=== PATIENT | female | born 1950 | race Caucasian/White ===

== ENCOUNTER 2017-04-11 04:25 | Observation (INO) | payer OTHER ==
[2017-04-11] MEDS ORDERED: TORADOL 30 MG VIAL IVP ONE (04:32)
[2017-04-11] MEDS ORDERED: NITRO-BID OINT 2% Multi-Dose tube TD ONE (04:34)
[2017-04-11] MEDS ORDERED: NITRO-BID OINT 2% Multi-Dose tube ONE (04:35)
[2017-04-11] MEDS ORDERED: TORADOL 15 MG VIAL ONE (04:36)
[2017-04-11 04:42] VITALS: BMI 37.4
[2017-04-11 04:57] LABS: BASOPHILS # (AUTO) 0.1 X10^3/uL (0.0-0.1); BASOPHILS % (AUTO) 1.3 % (0.2-1.0); EOSINOPHILS # (AUTO) 0.3 x10^3/uL (0.0-0.2); EOSINOPHILS % (AUTO) 3.3 % (0.9-2.9); HEMATOCRIT 38.3 % (36.0-47.0); HEMOGLOBIN 12.5 g/dL (12.0-16.0); LYMPHOCYTES # (AUTO) 2.8 X10^3/uL (1.3-2.9); LYMPHOCYTES % (AUTO) 29.8 % (21.0-51.0); MEAN CORPUSCULAR HGB CONC 32.6 g/dL (33.0-35.0); MEAN CORPUSCULAR VOLUME 89.1 fL (80.0-100.0); MEAN PLATELET VOLUME 9.2 fL (7.4-11.0); MONOCYTES # (AUTO) 0.7 x10^3/uL (0.3-0.8); MONOCYTES % (AUTO) 7.9 % (0.0-13.0); NEUTROPHILS # (AUTO) 5.4 x10^3/uL (2.2-4.8); NEUTROPHILS % (AUTO) 57.7 % (42.0-75.0); PLATELET COUNT 245 X10^3/uL (150.0-450.0); RED CELL DISTRIBUTION WIDTH 13.9 % (11.6-16.5); WHITE BLOOD COUNT 9.3 X10^3/uL (3.6-10.0)
[2017-04-11] MEDS ORDERED: NS 1000 ML 1,000 ML IV SCH (05:00)
--- NOTE | 2017-04-11 05:03 | RAD ---
HISTORY: 67-year-old female with chest pain. Study: Frontal view of the chest. Comparison: None. Findings: The trachea is midline. The cardiac silhouette is enlarged with prominent perihilar lung markings an d interstitium. The lungs are clear without focal consolidation, effusion or pneumothorax. Soft tiss ues are unremarkable. Osseous structures are unremarkable. IMPRESSION: 1. Cardiomegaly with prominent perihilar lung markings and interstitium consistent with COPD. Reported By:
[2017-04-11 05:11] LABS: BLOOD UREA NITROGEN 23 mg/dL (7-18); CALCIUM 9.1 mg/dL (8.5-10.1); CARBON DIOXIDE 26.7 mmol/L (21-32); CHLORIDE 105 mmol/L (98-107); COR NA(FOR HYPERGLY) 143 mmol/L (136-145); CREATININE 1.25 mg/dL (0.55-1.02); SODIUM 139 mmol/L (136-145); TROPONIN I < 0.02 ng/mL (0-1.5); eGFR BLACK RACES 55 (>60); eGFR NON BLACK RACES 46 (>60)
[2017-04-11 05:16] LABS: ALANINE AMINOTRANSFERASE 14 Units/L (12-78); ALBUMIN 3.3 g/dL (3.4-5.0); ALKALINE PHOSPHATASE 54 Units/L (46-116); ASPARTATE AMINO TRANSFERASE 10 Units/L (15-37); CKMB % 1.9 % (<4); COR CA(FOR HYPOALB) 9.7 mg/dL (8.5-10.1); CREATINE KINASE 53 Units/L (26-192); MAGNESIUM 1.8 mg/dL (1.7-2.9); TOTAL PROTEIN 6.9 g/dL (6.4-8.2)
[2017-04-11 05:19] LABS: B-TYPE NATRIURETIC PEPTIDE 54.1 pg/mL (0-79)
--- NOTE | 2017-04-11 05:45 | DR.CP ---
HPI - Time Seen Time seen: 06:36 (seen on arrival to ER) - PCP Primary Care Physician: CANDIDA TALBOT - Complaint Chief Complaint:: "I HAVE PAIN IN MY UPPER MID BACK GOING UP IN MY NECK AND AROUND ON MY RT SHOULDER. THIS HAPPENS WHEN MY BLOOD PRESSURE GETS TOO HIGH." - Reviewed Nurses Notes Review: Yes - Source History Provided: Patient, Friend (coworkers state pt has chest pain, pt mostly concerned with CLARKE, neck and back pain. Pt herself notes SOB yesterday) - Mode of Arrival Mode of Arrival: Wheelchair - Timing Onset of Chief Complaint: 04/11/17 Came on: Gradually Pain: Present Now - Duration Duration: Since Onset Duration: Days (chest pain 'just started', CLARKE and back pain x 2 days) - Location Location of Chest Pain: Chest Chest Pain Radiation Location: None - Context Onset: With light exertion (at work when symptoms began) Prehospital Care: None - Quality Quality: Sharp - Severity Severity: Mild, Moderate - Modifying Factors Worsens: Nothing Impoves: Nothing - Associated Signs and Symptoms Associated Signs and Symptoms: Other (upper back pain and CLARKE) PMH - PMH Past Medical History: Yes Past Medical History: Anxiety, Arthritis, Depression, Diabetes, Dyslipidemia, Migraines, GERD, Headaches, Hypertension, Hypothyroidism Past Medical History Comment: RHUEMATOID ARTHRITS, TIAs Past Surgical History: Yes Surgical History: Appendectomy, , Cholecystectomy Past Surgical History Comment: TUBALIGATION - Family History History of Family Medical Conditions: No - Social History Does patient currently use any type of tobacco product: No Have you used tobacco products in the last 12 months: No Type of Tobacco Use: None Does any household member use tobacco: No Alcohol Use: None Do you use any recreational Drugs:: No Lives With: Family Lives Where: Home - infectious screening Have you traveled outside the country in the last 6 months?: No Isolation: Standard ROS - Review of Systems Constitutional: Weakness Eyes: No Symptoms Reported ENTM: No Symptoms Reported Respiratoy: Short of Breath Cardiovascular: Chest Pain Gastrointestinal/Abdominal: No Symptoms Reported Genitourinary: No Symptoms Reported Neurological: Headache Musculoskeletal: Back Pain, Neck Pain, Neck, Back Integumentary: No Symptoms Reported Hematologic/Lymphatic: No Symptoms Reported Endocrine: No Symptoms Reported Psychiatric: No Symptoms Reported All Other Systems: Reviewed and Negative PE - Vitals Vitals: Temperature 98.2 F Pulse Rate [Apical] 50 Pulse Rate 54 Respiratory Rate 18 Blood Pressure [Left Arm] 152/66 Blood Pressure 191/72 O2 Sat by Pulse Oximetry 97 - General Limitations: No Limitations General Appearance: Alert, In No Apparent Distress - Head Head Exam: Normal Inspection, Atraumatic, Normocephalic - Eyes Eye exam: Normal Appearance, PERRL - ENT ENT Exam: Normal Exam - Respiratory Respiratory Exam: Normal Lung Sounds Bilat Respiratory Exam: Bilateral Clear to Auscultation - Cardiovascular Cardiovascular Exam: Regular Rate, Normal Heart Sounds Pulse: Normal, Radial Edema: Normal - Abdominal Exam Abdominal Exam: Normal Inspection, Normal Bowel Sounds, Soft. negative: Tenderness, Guarding, Rebound - Extremities Extremities Exam: Normal Inspection, Full ROM, Normal Capillary Refill. negative: Edema - Back Back Exam: Normal Inspection. negative: (R) CVA Tenderness, (L) CVA Tenderness , Rashes - Neurologic Neurological Exam: Alert, Oriented X3 - Psychiatric Psychiatric Exam: Normal Affect, Normal Mood - Skin Skin Exam: Warm, Dry, Intact, Normal Color ROR - Labs Reviewed Laboratory Results Reviewed?: Yes (cardiac w/u nonacute, glucose 261. BNP normal, Ddimer neg) Result Diagrams: 04/11/17 04:45 04/11/17 04:45 Laboratory: WBC 9.3 X10^3/uL (3.6-10.0) 04/11/17 04:45 RBC 4.30 X10^6/uL (3.5-5.4) 04/11/17 04:45 Hgb 12.5 g/dL (12.0-16.0) 04/11/17 04:45 Hct 38.3 % (36.0-47.0) 04/11/17 04:45 MCV 89.1 fL (80.0-100.0) 04/11/17 04:45 MCH 29.0 pg (27.0-34.0) 04/11/17 04:45 MCHC 32.6 g/dL (33.0-35.0) L 04/11/17 04:45 RDW 13.9 % (11.6-16.5) 04/11/17 04:45 Plt Count 245 X10^3/uL (150.0-450.0) 04/11/17 04:45 MPV 9.2 fL (7.4-11.0) 04/11/17 04:45 Neut % 57.7 % (42.0-75.0) 04/11/17 04:45 Lymph % 29.8 % (21.0-51.0) 04/11/17 04:45 [place] % 7.9 % (0.0-13.0) 04/11/17 04:45 Eos % 3.3 % (0.9-2.9) H 04/11/17 04:45 Baso % 1.3 % (0.2-1.0) H 04/11/17 04:45 Neut # 5.4 x10^3/uL (2.2-4.8) H 04/11/17 04:45 Lymph # 2.8 X10^3/uL (1.3-2.9) 04/11/17 04:45 [place] # 0.7 x10^3/uL (0.3-0.8) 04/11/17 04:45 Eos # 0.3 x10^3/uL (0.0-0.2) H 04/11/17 04:45 Baso # 0.1 X10^3/uL (0.0-0.1) 04/11/17 04:45 Absolute Nucleated RBC 0.0 /100WBC 04/11/17 04:45 INR Target Range - 04/11/17 04:45 INR 1.03 (0.8-1.3) 04/11/17 04:45 PTT 29.1 SECONDS (22.9-36.5) 04/11/17 04:45 PTT Comment - 04/11/17 04:45 D-Dimer 232 ng/mL (0-400) 04/11/17 04:45 Sodium 139 mmol/L (136-145) 04/11/17 04:45 Corrected Sodium 143 mmol/L (136-145) 04/11/17 04:45 Potassium 4.1 mmol/L (3.5-5.1) 04/11/17 04:45 Chloride 105 mmol/L (98-107) 04/11/17 04:45 Carbon Dioxide 26.7 mmol/L (21-32) 04/11/17 04:45 BUN 23 mg/dL (7-18) H 04/11/17 04:45 Creatinine 1.25 mg/dL (0.55-1.02) H 04/11/17 04:45 Est GFR (MDRD) Af Amer 55 (>60) L 04/11/17 04:45 Est GFR (MDRD) Non-Af 46 (>60) L 04/11/17 04:45 Glucose 261 mg/dL (65-99) H 04/11/17 04:45 Calcium 9.1 mg/dL (8.5-10.1) 04/11/17 04:45 Corrected Calcium 9.7 mg/dL (8.5-10.1) 04/11/17 04:45 Magnesium 1.8 mg/dL (1.7-2.9) 04/11/17 04:45 Total Bilirubin 0.10 mg/dL (0.2-1.0) L 04/11/17 04:45 AST 10 Units/L (15-37) L 04/11/17 04:45 ALT 14 Units/L (12-78) 04/11/17 04:45 Alkaline Phosphatase 54 Units/L (46-116) 04/11/17 04:45 Creatine Kinase 53 Units/L (26-192) 04/11/17 04:45 CK-MB (CK-2) 1.0 ng/mL (0-4.0) 04/11/17 04:45 CK/CKMB % Calc 1.9 % (<4) 04/11/17 04:45 Troponin I < 0.02 ng/mL (0-1.5) 04/11/17 04:45 B-Natriuretic Peptide 54.1 pg/mL (0-79) 04/11/17 04:45 Total Protein 6.9 g/dL (6.4-8.2) 04/11/17 04:45 Albumin 3.3 g/dL (3.4-5.0) L 04/11/17 04:45 Globulin 3.6 g/dL (2.5-4.5) 04/11/17 04:45 Albumin/Globulin Ratio 0.9 Ratio (1.1-2.1) L 04/11/17 04:45 - XRAY XRAY Interpreted by: Radiologist XRAY Findings: nothing acute - EKG Compared to prior EKG Dated: 04/11/17 (no old EKGs available) Rate: 52 [place]: Normal Rhythm: Junctional Block: None Hypertrophy: None ST: Normal Additional Notes - Additional Notes Additional Notes: I'd spoken with Dr Ortez early in pt's w/u regarding obs on tele for r/o on this pt, Dr Ortez agreed. Pt wants to stay for r/o. - Diagnosis Discharge Problem: Chest pain in adult - Discharge Plan Disposition: ADMITTED INPATIENT Condition: Stable - Follow ups/Referrals - Instructions
[2017-04-11] MEDS ORDERED: HumuLIN R ONE (05:54)
[2017-04-11] MEDS ORDERED: HumuLIN R SUBCUT ONE (06:00)
[2017-04-11] MEDS: NS 1000 ML 1,000 ML IV SCH ×2 (08:07→20:40)
[2017-04-11] MEDS: HumuLIN R SC SCH ×4 (08:08→20:39)
[2017-04-11] MEDS ORDERED: ZOFRAN INJ 4 MG VIAL IVP PRN (09:13)
[2017-04-11] MEDS: LOVENOX INJ 40 MG SYR SC SCH ×2 (10:20→20:35)
[2017-04-11] MEDS: MORPHINE SULFATE INJ 2 MG INJ IVP PRN ×2 (10:20→16:50)
[2017-04-11 11:08] LABS: CKMB % 2.2 % (<4); CREATINE KINASE 45 Units/L (26-192); CREATINE KINASE MB < 1.0 ng/mL (0-4.0); TROPONIN I < 0.02 ng/mL (0-1.5)
--- NOTE | 2017-04-11 13:24 | DR.H&P ---
H&P - History & Physical for Day of: H&P Date: 04/11/17 - Chief Complaint Chief Complaint: CLARKE, NECK PAIN, COUGH - Allergies Allergies/Adverse Reactions: Allergies Allergy/AdvReac Type Severity Reaction Status Date / Time neostigmine [From Prostigmin] Allergy Verified 04/11/17 04:43 nifedipine [From Procardia] Allergy Verified 04/11/17 04:43 - History of Present Illness History of Present Illness: 67[facility] ER ADMISSION AFTER PRESENTING WITH CO INTRACTABLE CLARKE AND ELEVATED BP, INCREASED CHEST PRESSURE. PT STATES SHE HAS BEEN SICK SINCE JANUARY. REOCCURRING CLARKE. PT HAS PMH OF HTN, OA. PT ADMITTED FOR R/O AMI, BP CONTROL, RESP THERAPY - Past Medical History Past Medical History: Anxiety, Arthritis, Depression, Diabetes, Dyslipidemia, Migraines, GERD, Headaches, Hypertension, Hypothyroidism - Past Surgical History Surgical History: Appendectomy, , Cholecystectomy - Social History Does patient currently use any type of tobacco product: No Have you used tobacco products in the last 12 months: No Type of Tobacco Use: None Does any household member use tobacco: No Alcohol Use: None Drug Use: None - Review of Systems Constitutional: Weakness Eyes: No Symptoms Reported ENT: No Symptoms Reported Respiratory: Cough, Shortness of Breath Cardiovascular: Chest Pain Gastrointestinal: No Symptoms Reported Genitourinary: No Symptoms Reported Musculoskeletal: Neck Pain Neurological: Other (HEADACHE) - Physical Exam Vital Signs: Temperature 98.7 F Pulse Rate [Apical] 54 Pulse Rate 54 Respiratory Rate 18 Blood Pressure [Left Arm] 138/61 Blood Pressure 191/72 O2 Sat by Pulse Oximetry 93 Oriented: Normal Eyes: Normal Ear: Normal Nose: Normal Throat: Normal Respiratory: Wheezes Throughout, RLL Diminished, LLL Diminished Cardiovascular: Normal : Normal Auscultation: Bowel Sounds: Normal Palpation: Normal Tenderness: Normal Skin: Normal Musculoskeletal: Back:Lumbar, Tender (CERIVCAL SPINE) Affect: Anxious Speech Pattern: Clear, Appropriate - Assessment/Plan (1) Chest pain Status: Acute Plan: ADMIT, R/O AMI. SERIAL CE, EKGS. RESP CONSULT, SUPPLEMENTAL O2. BP AND LIPID CONTROL, REPEAT AM LABS. RESUME HOME MEDS, SPUTUM CULTURE, IV ZITHROMAX (2) Intractable episodic headache Status: Acute (3) Hypertension Status: Acute (4) Neck pain Status: Acute (5) COPD (chronic obstructive pulmonary disease) Status: Acute
[2017-04-11] MEDS: ZITHROMAX INJ 500 MG VIAL 500 MG in NS 250 ML IV 250 ML IV SCH (13:42)
[2017-04-11] MEDS: SOLU-Medrol 40 MG VIAL IVP SCH ×3 (13:42→21:59)
[2017-04-11 17:09] LABS: CKMB % 2.6 % (<4); CREATINE KINASE 38 Units/L (26-192); CREATINE KINASE MB < 1.0 ng/mL (0-4.0); TROPONIN I < 0.02 ng/mL (0-1.5)
--- NOTE | 2017-04-11 17:12 | CT ---
HISTORY: Neck pain. Study: CT cervical spine without contrast Comparison: None. Technique: Multiple axial images of the cervical spine were obtained from the skull base to the thora cic inlet without administration of IV contrast. Sagittal and coronal reformats were performed and r eviewed. Dose reduction techniques including Automated Exposure Control (AEC) and adjustment of mA an d kV were utilized. Findings: Straightening of the normal cervical lordosis, which may represent positioning versus muscle spasm. N o acute fracture or listhesis. Multilevel [id number] degenerative changes of the cervical spine with associated mild neural foraminal narrowing. No significant spinal canal stenosis. The preverteb ral soft tissues and lung apices appear normal. IMPRESSION: No acute cervical pathology. Reported By:
[2017-04-11] MEDS: DUONEB 0.5 MG/3 MG NEB SCH ×2 (17:23→20:11)
[2017-04-11 23:11] LABS: CKMB % 2.4 % (<4); CREATINE KINASE 42 Units/L (26-192); CREATINE KINASE MB < 1.0 ng/mL (0-4.0); TROPONIN I < 0.02 ng/mL (0-1.5)
[2017-04-11] MEDS: RESTORIL CAP 15 MG PO PRN (23:45)
--- NOTE | 2017-04-12 05:18 | CT ---
CT ANGIOGRAPHY NECK CLINICAL HISTORY: 67-year-old female with headache and dizziness with blurred vision. COMPARISON: None. TECHNIQUE: Multiple axial CT images were obtained from the skull base to the aortic arch prior to an d following the administration of 100 mL Omnipaque 350 IV contrast and reformatted in the sagittal an d coronal planes. Rotating 3D and MIP reformats are submitted. FINDINGS: The take-off of the great vessels is conventional. The origins of the common carotid and ve rtebral arteries are patent. There is no evidence of dissection or high grade stenosis of the carotid or vertebral systems. Less than 50% stenosis of the ICA at the carotid bulb bilaterally secondary to calcific and noncalcific atherosclerotic plaque. The vertebral arteries are codominant. The vertebra l arteries terminate in a normal appearing basilar artery. The carotid bifurcations are normal in sofía earance. Scattered mucosal thickening of the left ethmoid air cells with near complete opacification of the le ft maxillary and sphenoid sinus. Remaining imaged paranasal sinuses, mastoid air cells and tympanic c avities are clear. Bilateral lens implants. The soft tissues of the neck are within normal limits. Scattered paraseptal and centrilobular emphyse matous change. Multilevel degenerative change of the cervical spine without significant central canal or neural foraminal stenosis. IMPRESSION: 1. No dissection, aneurysm, high-grade stenosis, complete occlusion or vascular malformation. 2. Mucosal thickening and opacification of the paranasal sinuses as described, correlate for sinusiti s, this is the likely source of patient's headache. Reported By:
[2017-04-12] MEDS: SOLU-Medrol 40 MG VIAL IVP SCH ×3 (05:40→21:07)
[2017-04-12 06:02] LABS: BASOPHILS % (AUTO) 0.5 % (0.2-1.0); HEMATOCRIT 37.6 % (36.0-47.0); HEMOGLOBIN 12.4 g/dL (12.0-16.0); LYMPHOCYTES # (AUTO) 0.7 X10^3/uL (1.3-2.9); MEAN CORPUSCULAR HGB CONC 32.9 g/dL (33.0-35.0); MEAN CORPUSCULAR VOLUME 88.1 fL (80.0-100.0); MONOCYTES # (AUTO) 0.1 x10^3/uL (0.3-0.8); NEUTROPHILS # (AUTO) 5.8 x10^3/uL (2.2-4.8); NEUTROPHILS % (AUTO) 87.5 % (42.0-75.0); PLATELET COUNT 245 X10^3/uL (150.0-450.0); RED BLOOD COUNT 4.27 X10^6/uL (3.5-5.4); RED CELL DISTRIBUTION WIDTH 13.3 % (11.6-16.5); WHITE BLOOD COUNT 6.6 X10^3/uL (3.6-10.0)
[2017-04-12 06:15] LABS: ALANINE AMINOTRANSFERASE 11 Units/L (12-78); ALBUMIN 2.9 g/dL (3.4-5.0); ALKALINE PHOSPHATASE 49 Units/L (46-116); ASPARTATE AMINO TRANSFERASE 11 Units/L (15-37); BLOOD UREA NITROGEN 20 mg/dL (7-18); CALCIUM 8.8 mg/dL (8.5-10.1); CARBON DIOXIDE 26.6 mmol/L (21-32); CHLORIDE 105 mmol/L (98-107); CHOLESTEROL 163 mg/dL (0-200); COR CA(FOR HYPOALB) 9.7 mg/dL (8.5-10.1); COR NA(FOR HYPERGLY) 143 mmol/L (136-145); CREATININE 1.14 mg/dL (0.55-1.02); HDL CHOLESTEROL 41 mg/dL (40-60); SODIUM 139 mmol/L (136-145); TOTAL PROTEIN 6.7 g/dL (6.4-8.2); TRIGLYCERIDES 232 mg/dL (0-150); eGFR BLACK RACES > 60 (>60); eGFR NON BLACK RACES 51 (>60)
[2017-04-12] MEDS: HumuLIN R SC SCH ×4 (06:15→22:00)
[2017-04-12] MEDS: DUONEB 0.5 MG/3 MG NEB SCH ×4 (08:31→20:12)
[2017-04-12] MEDS: ZITHROMAX INJ 500 MG VIAL 500 MG in NS 250 ML IV 250 ML IV SCH (08:51)
[2017-04-12] MEDS: LOVENOX INJ 40 MG SYR SC SCH ×2 (08:51→20:34)
[2017-04-12] MEDS: NS 1000 ML 1,000 ML IV SCH (08:51)
[2017-04-12] MEDS: MORPHINE SULFATE INJ 2 MG INJ IVP PRN (08:52)
[2017-04-12] MEDS ORDERED: ZESTRIL TAB 20 MG ONE ×2 (09:41→09:45)
[2017-04-12] MEDS: ZESTRIL TAB 20 MG PO SCH (09:47)
[2017-04-12] MEDS ORDERED: MORPHINE SULFATE INJ 2 MG INJ IVP PRN (11:30)
[2017-04-12 11:36] LABS: CKMB % 1.7 % (<4); CREATINE KINASE 58 Units/L (26-192); CREATINE KINASE MB < 1.0 ng/mL (0-4.0); TROPONIN I < 0.02 ng/mL (0-1.5)
[2017-04-12] MEDS: COLACE CAP 100 MG PO SCH ×2 (13:43→20:32)
--- NOTE | 2017-04-12 14:29 | PCM.PROG ---
Progress Note - Progress Note for Day of Date: 04/12/17 - Subjective Subjective: PT CONTINUES TO CO TO CLARKE, ELEVATED BLOOD PRESSURE. PT HAS CHEST CONGESTION AND DIFFUSE EXP WHEEZES. PT CURRENTLY ON IV ABTX, RESP THERAPY, SUPPLEMENTAL O2 - Past Medical Family Social History Past Med/Fam/Surg Hx: No changes since H&P Allergies: Allergies neostigmine [From Prostigmin] Allergy (Verified 04/11/17 04:43) nifedipine [From Procardia] Allergy (Verified 04/11/17 04:43) - Review of Systems ROS: No change since H&P - Vital Signs and I&O's Vital Signs: Temperature 97.8 F Pulse Rate [Apical] 80 Pulse Rate 70 Respiratory Rate 20 Blood Pressure [Left Arm] 194/88 Blood Pressure 191/72 O2 Sat by Pulse Oximetry 96 Intake and Output: Intake & Output 04/10/17 04/11/17 04/12/17 04/13/17 11:59 11:59 11:59 11:59 Intake Total 1565 480 Output Total 300 Balance 1565 180 - Physical Exam Oriented: Normal Eyes: Normal Ear: Normal Nose: Normal Throat: Normal Respiratory: Wheezes, Rhonchi Cardiovascular: Normal : Normal Auscultation: Bowel Sounds: Normal Tenderness: Normal Skin: Normal Musculoskeletal: Back:Lumbar, Tender (CERIVCAL SPINE) Affect: Anxious Speech Pattern: Clear, Appropriate - Laboratory and Diagnostics Result Diagrams: 04/12/17 04:15 04/12/17 04:15 Labs: 04/11/17 21:55 Sputum - Expectorated Sputum - Final Laboratory WBC 6.6 X10^3/uL (3.6-10.0) 04/12/17 04:15 RBC 4.27 X10^6/uL (3.5-5.4) 04/12/17 04:15 Hgb 12.4 g/dL (12.0-16.0) 04/12/17 04:15 Hct 37.6 % (36.0-47.0) 04/12/17 04:15 MCV 88.1 fL (80.0-100.0) 04/12/17 04:15 MCH 29.0 pg (27.0-34.0) 04/12/17 04:15 MCHC 32.9 g/dL (33.0-35.0) L 04/12/17 04:15 RDW 13.3 % (11.6-16.5) 04/12/17 04:15 Plt Count 245 X10^3/uL (150.0-450.0) 04/12/17 04:15 MPV 10.0 fL (7.4-11.0) 04/12/17 04:15 Neut % 87.5 % (42.0-75.0) H 04/12/17 04:15 Lymph % 11.0 % (21.0-51.0) L 04/12/17 04:15 [place] % 1.0 % (0.0-13.0) 04/12/17 04:15 Eos % 0.0 % (0.9-2.9) L 04/12/17 04:15 Baso % 0.5 % (0.2-1.0) 04/12/17 04:15 Neut # 5.8 x10^3/uL (2.2-4.8) H 04/12/17 04:15 Lymph # 0.7 X10^3/uL (1.3-2.9) L 04/12/17 04:15 [place] # 0.1 x10^3/uL (0.3-0.8) L 04/12/17 04:15 Eos # 0.0 x10^3/uL (0.0-0.2) 04/12/17 04:15 Baso # 0.0 X10^3/uL (0.0-0.1) 04/12/17 04:15 Absolute Nucleated RBC 0.0 /100WBC 04/12/17 04:15 INR Target Range - 04/11/17 04:45 INR 1.03 (0.8-1.3) 04/11/17 04:45 PTT 29.1 SECONDS (22.9-36.5) 04/11/17 04:45 PTT Comment - 04/11/17 04:45 D-Dimer 232 ng/mL (0-400) 04/11/17 04:45 Sodium 139 mmol/L (136-145) 04/12/17 04:15 Corrected Sodium 143 mmol/L (136-145) 04/12/17 04:15 Potassium 4.8 mmol/L (3.5-5.1) 04/12/17 04:15 Chloride 105 mmol/L (98-107) 04/12/17 04:15 Carbon Dioxide 26.6 mmol/L (21-32) 04/12/17 04:15 BUN 20 mg/dL (7-18) H 04/12/17 04:15 Creatinine 1.14 mg/dL (0.55-1.02) H 04/12/17 04:15 Est GFR (MDRD) Af Amer > 60 (>60) 04/12/17 04:15 Est GFR (MDRD) Non-Af 51 (>60) L 04/12/17 04:15 Glucose 284 mg/dL (65-99) H 04/12/17 04:15 POC Glucose (mg/dL) 295 mg/dL (65-99) H 04/12/17 12:58 Calcium 8.8 mg/dL (8.5-10.1) 04/12/17 04:15 Corrected Calcium 9.7 mg/dL (8.5-10.1) 04/12/17 04:15 Magnesium 1.8 mg/dL (1.7-2.9) 04/11/17 04:45 Total Bilirubin 0.10 mg/dL (0.2-1.0) L 04/12/17 04:15 AST 11 Units/L (15-37) L 04/12/17 04:15 ALT 11 Units/L (12-78) L 04/12/17 04:15 Alkaline Phosphatase 49 Units/L (46-116) 04/12/17 04:15 Creatine Kinase 58 Units/L (26-192) 04/12/17 10:58 CK-MB (CK-2) < 1.0 ng/mL (0-4.0) 04/12/17 10:58 CK/CKMB % Calc 1.7 % (<4) 04/12/17 10:58 Troponin I < 0.02 ng/mL (0-1.5) 04/12/17 10:58 B-Natriuretic Peptide 54.1 pg/mL (0-79) 04/11/17 04:45 Total Protein 6.7 g/dL (6.4-8.2) 04/12/17 04:15 Albumin 2.9 g/dL (3.4-5.0) L 04/12/17 04:15 Globulin 3.8 g/dL (2.5-4.5) 04/12/17 04:15 Albumin/Globulin Ratio 0.8 Ratio (1.1-2.1) L 04/12/17 04:15 Triglycerides 232 mg/dL (0-150) H 04/12/17 04:15 Cholesterol 163 mg/dL (0-200) 04/12/17 04:15 LDL Cholesterol, Calc 76 mg/dL (0-100) 04/12/17 04:15 HDL Cholesterol 41 mg/dL (40-60) 04/12/17 04:15 Cholesterol/HDL Ratio 4.0 (0.0-5.0) 04/12/17 04:15 - Plan (1) Chest pain Status: Acute Plan: SERIAL CE, EKGS STABLE, RESULTS REVIEWED WITH PT. RESP CONSULT, SUPPLEMENTAL O2. BP AND LIPID CONTROL, REPEAT AM LABS. RESUME HOME MEDS, SPUTUM CULTURE, IV ZITHROMAX. PAIN AND NAUSEA CONTROL (2) Intractable episodic headache Status: Acute (3) Hypertension Status: Acute (4) Neck pain Status: Acute (5) COPD (chronic obstructive pulmonary disease) Status: Acute
[2017-04-12] MEDS: CATAPRES TAB 0.1 MG PO SCH ×3 (15:51→21:05)
[2017-04-12] MEDS ORDERED: LOPRESSOR INJ 5 MG AMP IVP ONE (17:02)
[2017-04-12] MEDS ORDERED: NITROSTAT SL ONE (17:02)
[2017-04-12] MEDS ORDERED: ASPIRIN ONE (17:02)
[2017-04-12] MEDS: NITROSTAT SL PRN ×2 (17:05→17:10)
[2017-04-12] MEDS: PLAVIX PO SCH (17:47)
[2017-04-12] MEDS: PROTONIX TAB 40 MG PO SCH (17:55)
[2017-04-12] MEDS: ALDACTONE TAB 25 MG PO SCH (17:55)
[2017-04-12] MEDS ORDERED: ASPIRIN PO ONE (18:00)
[2017-04-12] MEDS ORDERED: SYNTHROID 25 mcg TAB PO SCH (18:00)
[2017-04-12 18:05] LABS: CKMB % 2.1 % (<4); CREATINE KINASE 57 Units/L (26-192); CREATINE KINASE MB 1.2 ng/mL (0-4.0); TROPONIN I < 0.02 ng/mL (0-1.5)
[2017-04-12] MEDS: APRESOLINE TAB 25 MG PO SCH (20:31)
[2017-04-12] MEDS: LEVEMIR SC SCH (20:32)
[2017-04-12] MEDS: SINGULAIR TAB 10 MG PO SCH (20:34)
[2017-04-12] MEDS: RESTORIL CAP 15 MG PO PRN (20:36)
[2017-04-12] MEDS: TRICOR TAB 160 MG PO SCH (20:36)
[2017-04-12] MEDS: SNACK - Diabetic Appropriate PO SCH (21:00)
[2017-04-12] MEDS: NEURONTIN CAP 100 MG PO SCH (21:07)
[2017-04-13 02:46] LABS: CKMB % 1.7 % (<4); CREATINE KINASE 75 Units/L (26-192); CREATINE KINASE MB 1.3 ng/mL (0-4.0); TROPONIN I < 0.02 ng/mL (0-1.5)
[2017-04-13] MEDS: CATAPRES TAB 0.1 MG PO SCH ×6 (03:07→23:52)
[2017-04-13] MEDS: NORCO 10/325 TAB PO PRN ×2 (04:57→23:38)
[2017-04-13] MEDS: NS 1000 ML 1,000 ML IV SCH ×3 (04:58→21:22)
[2017-04-13] MEDS: NEURONTIN CAP 100 MG PO SCH ×3 (05:00→21:07)
[2017-04-13] MEDS: SOLU-Medrol 40 MG VIAL IVP SCH ×3 (05:00→21:07)
[2017-04-13 06:08] LABS: BASOPHILS % (AUTO) 0.3 % (0.2-1.0); HEMATOCRIT 35.5 % (36.0-47.0); HEMOGLOBIN 11.7 g/dL (12.0-16.0); LYMPHOCYTES # (AUTO) 0.8 X10^3/uL (1.3-2.9); LYMPHOCYTES % (AUTO) 7.8 % (21.0-51.0); MEAN CORPUSCULAR HEMOGLOBIN 29.2 pg (27.0-34.0); MEAN CORPUSCULAR VOLUME 88.4 fL (80.0-100.0); MEAN PLATELET VOLUME 10.1 fL (7.4-11.0); MONOCYTES # (AUTO) 0.4 x10^3/uL (0.3-0.8); MONOCYTES % (AUTO) 4.2 % (0.0-13.0); NEUTROPHILS % (AUTO) 87.7 % (42.0-75.0); PLATELET COUNT 263 X10^3/uL (150.0-450.0); RED BLOOD COUNT 4.01 X10^6/uL (3.5-5.4); RED CELL DISTRIBUTION WIDTH 13.5 % (11.6-16.5); WHITE BLOOD COUNT 10.3 X10^3/uL (3.6-10.0)
[2017-04-13] MEDS: HumuLIN R SC SCH (06:11)
[2017-04-13 06:41] LABS: CALCIUM 8.9 mg/dL (8.5-10.1); CARBON DIOXIDE 25.2 mmol/L (21-32); CKMB % 1.6 % (<4); COR CA(FOR HYPOALB) 9.7 mg/dL (8.5-10.1); CREATINE KINASE MB 1.2 ng/mL (0-4.0); CREATININE 1.22 mg/dL (0.55-1.02); TOTAL PROTEIN 6.6 g/dL (6.4-8.2); TROPONIN I 0.02 ng/mL (0-1.5)
[2017-04-13] MEDS ORDERED: ZESTRIL TAB 20 MG ONE (08:11)
[2017-04-13] MEDS: LOVENOX INJ 40 MG SYR SC SCH ×2 (08:26→21:05)
[2017-04-13] MEDS: ZITHROMAX INJ 500 MG VIAL 500 MG in NS 250 ML IV 250 ML IV SCH (08:26)
[2017-04-13] MEDS: LEVEMIR SC SCH ×2 (08:27→21:04)
[2017-04-13] MEDS: ZESTRIL TAB 20 MG PO SCH (08:28)
[2017-04-13] MEDS: ALDACTONE TAB 25 MG PO SCH (08:28)
[2017-04-13] MEDS: PROTONIX TAB 40 MG PO SCH (08:28)
[2017-04-13] MEDS: APRESOLINE TAB 25 MG PO SCH ×2 (08:30→21:03)
[2017-04-13] MEDS: PLAVIX PO SCH (08:30)
[2017-04-13] MEDS: DUONEB 0.5 MG/3 MG NEB SCH (08:49)
[2017-04-13 11:16] LABS: CKMB % 1.7 % (<4); CREATINE KINASE MB 1.4 ng/mL (0-4.0); TROPONIN I 0.05 ng/mL (0-1.5)
[2017-04-13] MEDS: XOPENEX 1.25 MG/3 ML NEBULE NEB SCH ×2 (11:24→17:07)
[2017-04-13] MEDS ORDERED: LEXAPRO ONE (11:49)
[2017-04-13] MEDS: LEXAPRO PO SCH (12:10)
[2017-04-13] MEDS: HumuLIN R SC PRN ×3 (12:42→21:17)
[2017-04-13] MEDS: SNACK - Diabetic Appropriate PO SCH (21:01)
[2017-04-13] MEDS: COLACE CAP 100 MG PO SCH (21:04)
[2017-04-13] MEDS: TRICOR TAB 160 MG PO SCH (21:06)
[2017-04-13] MEDS: SINGULAIR TAB 10 MG PO SCH (21:06)
[2017-04-14] MEDS: XOPENEX 1.25 MG/3 ML NEBULE NEB SCH ×4 (00:25→17:17)
[2017-04-14] MEDS: CATAPRES TAB 0.1 MG PO SCH ×6 (03:07→23:30)
[2017-04-14] MEDS: NEURONTIN CAP 100 MG PO SCH ×3 (05:29→21:15)
[2017-04-14] MEDS: SOLU-Medrol 40 MG VIAL IVP SCH (05:31)
[2017-04-14] MEDS: HumuLIN R SC PRN ×4 (05:35→21:23)
[2017-04-14 06:09] LABS: BASOPHILS % (AUTO) 0.4 % (0.2-1.0); HEMATOCRIT 37.3 % (36.0-47.0); HEMOGLOBIN 12.3 g/dL (12.0-16.0); LYMPHOCYTES # (AUTO) 0.9 X10^3/uL (1.3-2.9); LYMPHOCYTES % (AUTO) 8.8 % (21.0-51.0); MEAN CORPUSCULAR HGB CONC 32.9 g/dL (33.0-35.0); MEAN CORPUSCULAR VOLUME 88.2 fL (80.0-100.0); MEAN PLATELET VOLUME 10.2 fL (7.4-11.0); MONOCYTES # (AUTO) 0.4 x10^3/uL (0.3-0.8); MONOCYTES % (AUTO) 4.1 % (0.0-13.0); NEUTROPHILS # (AUTO) 8.7 x10^3/uL (2.2-4.8); NEUTROPHILS % (AUTO) 86.7 % (42.0-75.0); PLATELET COUNT 263 X10^3/uL (150.0-450.0); RED BLOOD COUNT 4.23 X10^6/uL (3.5-5.4); RED CELL DISTRIBUTION WIDTH 13.8 % (11.6-16.5)
[2017-04-14 06:32] LABS: ALANINE AMINOTRANSFERASE 12 Units/L (12-78); ALBUMIN 3.1 g/dL (3.4-5.0); ALKALINE PHOSPHATASE 45 Units/L (46-116); ASPARTATE AMINO TRANSFERASE 11 Units/L (15-37); BLOOD UREA NITROGEN 21 mg/dL (7-18); CALCIUM 9.1 mg/dL (8.5-10.1); CARBON DIOXIDE 26.2 mmol/L (21-32); CHLORIDE 104 mmol/L (98-107); CKMB % 2.1 % (<4); COR CA(FOR HYPOALB) 9.8 mg/dL (8.5-10.1); COR NA(FOR HYPERGLY) 144 mmol/L (136-145); CREATINE KINASE 73 Units/L (26-192); CREATINE KINASE MB 1.5 ng/mL (0-4.0); CREATININE 1.15 mg/dL (0.55-1.02); SODIUM 140 mmol/L (136-145); TOTAL PROTEIN 6.8 g/dL (6.4-8.2); TROPONIN I 0.03 ng/mL (0-1.5); eGFR BLACK RACES > 60 (>60); eGFR NON BLACK RACES 50 (>60)
[2017-04-14] MEDS ORDERED: SYNTHROID 100 mcg TAB PO SCH (07:30)
[2017-04-14] MEDS ORDERED: SYNTHROID 25 mcg TAB PO SCH (07:30)
[2017-04-14] MEDS ORDERED: PROTONIX TAB 40 MG PO SCH (07:30)
[2017-04-14] MEDS ORDERED: SYNTHROID 125 mcg TAB PO SCH (07:30)
[2017-04-14] MEDS ORDERED: LEXAPRO ONE (08:09)
[2017-04-14] MEDS ORDERED: ZESTRIL TAB 20 MG ONE (08:09)
[2017-04-14] MEDS: ZITHROMAX INJ 500 MG VIAL 500 MG in NS 250 ML IV 250 ML IV SCH (08:19)
[2017-04-14] MEDS: PLAVIX PO SCH (08:22)
[2017-04-14] MEDS: LEXAPRO PO SCH (08:23)
[2017-04-14] MEDS: APRESOLINE TAB 25 MG PO SCH ×2 (08:23→21:12)
[2017-04-14] MEDS: ZESTRIL TAB 20 MG PO SCH (08:24)
[2017-04-14] MEDS: LOVENOX INJ 40 MG SYR SC SCH ×2 (08:24→21:13)
[2017-04-14] MEDS: MILK OF MAGNESIA PO SCH ×2 (08:24→21:14)
[2017-04-14] MEDS: ALDACTONE TAB 25 MG PO SCH (08:24)
[2017-04-14] MEDS: LEVEMIR SC SCH ×2 (08:25→21:13)
[2017-04-14] MEDS: NS 1000 ML 1,000 ML IV SCH (17:48)
[2017-04-14] MEDS: SINGULAIR TAB 10 MG PO SCH (21:11)
[2017-04-14] MEDS: SNACK - Diabetic Appropriate PO SCH (21:11)
[2017-04-14] MEDS: COLACE CAP 100 MG PO SCH (21:12)
[2017-04-14] MEDS: TRICOR TAB 160 MG PO SCH (21:15)
[2017-04-14] MEDS: RESTORIL CAP 15 MG PO PRN (23:45)
[2017-04-15] MEDS: XOPENEX 1.25 MG/3 ML NEBULE NEB SCH (00:27)
[2017-04-15] MEDS: CATAPRES TAB 0.1 MG PO SCH (03:30)
[2017-04-15 04:35] VITALS: BP 169/74
[2017-04-15] MEDS: NEURONTIN CAP 100 MG PO SCH (05:52)
[2017-04-15 06:03] LABS: BASOPHILS # (AUTO) 0.1 X10^3/uL (0.0-0.1); BASOPHILS % (AUTO) 0.6 % (0.2-1.0); EOSINOPHILS # (AUTO) 0.1 x10^3/uL (0.0-0.2); EOSINOPHILS % (AUTO) 0.7 % (0.9-2.9); HEMATOCRIT 37.4 % (36.0-47.0); HEMOGLOBIN 12.2 g/dL (12.0-16.0); LYMPHOCYTES # (AUTO) 3.6 X10^3/uL (1.3-2.9); MEAN CORPUSCULAR HEMOGLOBIN 28.8 pg (27.0-34.0); MEAN CORPUSCULAR HGB CONC 32.6 g/dL (33.0-35.0); MEAN CORPUSCULAR VOLUME 88.3 fL (80.0-100.0); MEAN PLATELET VOLUME 9.6 fL (7.4-11.0); MONOCYTES # (AUTO) 0.6 x10^3/uL (0.3-0.8); MONOCYTES % (AUTO) 6.9 % (0.0-13.0); NEUTROPHILS # (AUTO) 4.9 x10^3/uL (2.2-4.8); NEUTROPHILS % (AUTO) 52.8 % (42.0-75.0); PLATELET COUNT 235 X10^3/uL (150.0-450.0); RED BLOOD COUNT 4.24 X10^6/uL (3.5-5.4); RED CELL DISTRIBUTION WIDTH 13.5 % (11.6-16.5); WHITE BLOOD COUNT 9.2 X10^3/uL (3.6-10.0)
[2017-04-15 06:37] LABS: ALANINE AMINOTRANSFERASE 8 Units/L (12-78); ALBUMIN 2.8 g/dL (3.4-5.0); ALKALINE PHOSPHATASE 42 Units/L (46-116); ASPARTATE AMINO TRANSFERASE < 6 Units/L (15-37); BLOOD UREA NITROGEN 23 mg/dL (7-18); CALCIUM 8.7 mg/dL (8.5-10.1); CARBON DIOXIDE 31.2 mmol/L (21-32); CHLORIDE 105 mmol/L (98-107); COR CA(FOR HYPOALB) 9.7 mg/dL (8.5-10.1); COR NA(FOR HYPERGLY) 143 mmol/L (136-145); CREATININE 1.12 mg/dL (0.55-1.02); SODIUM 142 mmol/L (136-145); TOTAL PROTEIN 6.1 g/dL (6.4-8.2); eGFR BLACK RACES > 60 (>60); eGFR NON BLACK RACES 52 (>60)
== END 2017-04-15 06:05 | disposition short-term general hospital (02) ==
LOC: ER 04:25 → MED/SURG 06:26
PROVIDERS: ADMIT Internal Medicine; ATTEND Internal Medicine
DX: R07.89 Other chest pain (principal); R51 Headache; I10 Essential (primary) hypertension; M54.2 Cervicalgia; J44.9 Chronic obstructive pulmonary disease, unspecified; R94.31 Abnormal electrocardiogram [ECG] [EKG]; I51.7 Cardiomegaly
CPT/HCPCS: 36415; 70498; 71045; 72125; 80053; 80061; 82550; 82553; 82947; 83735; 83880; 84484; 85025; 85378; 85610; 85730; 87070; 87205; 93005; 93010; 94640; 94760; 96365; 96367; 96372; 99284; A4216; A4222; 1956; G0378; J0456; J1650; J1815; J2270; J2920; J3490; J7620